=== PATIENT | male | born 1965 | race Caucasian/White ===

== ENCOUNTER 2019-01-15 14:03 | Emergency (ER) | payer OTHER ==
[~2019-01-15] VITALS: Ht 198.1 cm; Wt 99.8 kg
--- NOTE | 2019-01-15 14:15 | NUR ---
Patient arrived by EMS complaining of abdominal pain and chest pain x 2 days. No nausea, vomiting, or diarrhea. Chest pain does not radiate and he pointed to his abdomen when asked where he feels pain. Patient states he he drank alcohol 2 hours ago and drank 2 bottles of tequila last night. VSS, on ekg monitor tech, bed in lowest position.
[2019-01-15 14:40] VITALS: BP 124/75
[2019-01-15 15:02] LABS: BASOPHILS % (AUTO) 1.3 % (0.0-2.0); EOSINOPHILS % (AUTO) 1.6 % (0.0-3.0); HEMATOCRIT 44.9 % (42.0-52.0); HEMOGLOBIN 15.3 G/DL (14.2-18.0); LYMPHOCYTES % (AUTO) 38.1 % (20.0-45.0); MEAN CORPUSCULAR VOLUME 99 FL (80-99); MONOCYTES % (AUTO) 10.8 % (1.0-10.0); NEUTROPHILS % (AUTO) 48.2 % (45.0-75.0); PLATELET COUNT 162 K/UL (150-450); RED BLOOD COUNT 4.55 M/UL (4.70-6.10); RED CELL DISTRIBUTION WIDTH 12.2 % (11.6-14.8); WHITE BLOOD COUNT 4.3 K/UL (4.8-10.8)
[2019-01-15 15:13] LABS: ANION GAP 16 mmol/L (5-15); BLOOD UREA NITROGEN 22 mg/dL (7-18); CALCIUM 8.5 MG/DL (8.5-10.1); CARBON DIOXIDE 22 MMOL/L (21-32); CHLORIDE 106 MMOL/L (98-107); CREATININE 0.8 MG/DL (0.55-1.30); POTASSIUM 4.3 MMOL/L (3.5-5.1); SODIUM 144 MMOL/L (136-145)
[2019-01-15 15:20] LABS: ALANINE AMINOTRANSFERASE 59 U/L (12-78); ALBUMIN 4.3 G/DL (3.4-5.0); ALBUMIN/GLOBULIN RATIO 1.2 (1.0-2.7); ALKALINE PHOSPHATASE 69 U/L (46-116); ASPARTATE AMINO TRANSFERASE 44 U/L (15-37); BILIRUBIN,TOTAL 0.4 MG/DL (0.2-1.0)
[2019-01-15 15:40] VITALS: BP 123/78
--- NOTE | 2019-01-15 15:44 | NUR ---
ED Nurse Note: VSS, patient tolerating medications.
--- NOTE | 2019-01-15 17:51 | Emergency Room Report ---
History of Present Illness General Chief Complaint: Abdominal Pain Source: Patient Present Illness HPI 53-year-old male presents ED for evaluation. Brought in by EMS for abdominal pain and vomiting started today.. Pain is epigastric, sharp, 7 out of 10, nonradiating. Denies any diarrhea. States he has been drinking alcohol all day. Patient initially told EMS he was having some chest pain but denies chest pain to me. Denies drug use. Denies history of hypertension or other cardiac risk factors. No other aggravating relieving factors. Denies any other associated symptoms Allergies: Coded Allergies: No Known Allergies (Unverified , 01/15/19) Patient History Past Medical History: none Past Surgical History: none Pertinent Family History: none Social History: Reports: alcohol use; Denies: smoking, drug use Immunizations: UTD Reviewed Nursing Documentation: PMH: Agreed; PSxH: Agreed Nursing Documentation-PMH Past Medical History: No History, Except For Review of Systems All Other Systems: negative except mentioned in HPI Physical Exam Vital Signs Date Time Temp Pulse Resp B/P (MAP) Pulse Ox O2 Delivery O2 Flow Rate FiO2 01/15/19 14:00 98.2 111 18 124/75 (91) 98 01/15/19 14:40 Room Air Sp02 EP Interpretation: reviewed, normal General Appearance: no apparent distress, alert, GCS 15, non-toxic Head: normocephalic, atraumatic Eyes: bilateral eye normal inspection, bilateral eye PERRL ENT: hearing grossly normal, normal pharynx, no angioedema, normal voice Neck: full range of motion, supple/symm/no masses Respiratory: chest non-tender, lungs clear, normal breath sounds, speaking full sentences Cardiovascular #1: regular rate, rhythm, no edema Cardiovascular #2: 2+ carotid (R), 2+ carotid (L), 2+ radial (R), 2+ radial (L) , 2+ dorsalis pedis (R), 2+ dorsalis pedis (L) Gastrointestinal: normal bowel sounds, soft, non-distended, no guarding, no rebound, tenderness Rectal: deferred Genitourinary: normal inspection, no CVA tenderness Musculoskeletal: back normal, gait/station normal, normal range of motion, non- tender Neurologic: alert, oriented x3, responsive, motor strength/tone normal, sensory intact, speech normal Psychiatric: judgement/insight normal, memory normal, mood/affect normal, no suicidal/homicidal ideation Reflexes: 3+ bicep (R), 3+ bicep (L), 3+ tricep (R), 3+ tricep (L), 3+ knee (R) , 3+ knee (L) Lymphatic: no adenopathy Medical Decision Making Diagnostic Impression: Primary Impression: Alcohol intoxication Qualified Codes: F10.929 - Alcohol use, unspecified with intoxication, unspecified Additional Impression: Gastritis Qualified Codes: K29.20 - Alcoholic gastritis without bleeding ER Course Hospital Course 53 yo M presents c/o abd pain and vomiting. +ETOH differential diagnosis: gastritis, SBO, cholecystits Clinical course Patient placed on stretcher. On metal box maker. After initial history and physical I ordered labs, IV fluids, EKG, Zofran and pepcid Labs - no leukocytosis, no electrolyte abnormalities, LFTs normal, ETOH elevated , UDS + Bzs, trop negative EKG - NSR, no acute ischemic changes inteprreted by me patient is allowed to sleep. Given IV fluids. Stable vitals during ED course. Is not clinically sober. Discussed findings with patient. Will discharge to home. Will provide PMD referrals I feel this is a highly complex case requiring extensive working including EKG/ Rhythm strip, Xray/CT/US, Blood/urine lab work, repeat exams while in ED, and administration of strong opiates/narcotics for pain control, admission to hospital or close patient follow up. Diagnosis - gastritis , alcohol intoxication Stable and discharged to home with prescriptions for Zantac, zofran. Followup with PMD. Return to ED if symptoms recur or worsen Labs Test 01/15/19 13:40 White Blood Count 4.3 K/UL (4.8-10.8) Red Blood Count 4.55 M/UL (4.70-6.10) Hemoglobin 15.3 G/DL (14.2-18.0) Hematocrit 44.9 % (42.0-52.0) Mean Corpuscular Volume 99 FL (80-99) Mean Corpuscular Hemoglobin 33.7 PG (27.0-31.0) Mean Corpuscular Hemoglobin Concent 34.1 G/DL (32.0-36.0) Red Cell Distribution Width 12.2 % (11.6-14.8) Platelet Count 162 K/UL (150-450) Mean Platelet Volume 6.7 FL (6.5-10.1) Neutrophils (%) (Auto) 48.2 % (45.0-75.0) Lymphocytes (%) (Auto) 38.1 % (20.0-45.0) Monocytes (%) (Auto) 10.8 % (1.0-10.0) Eosinophils (%) (Auto) 1.6 % (0.0-3.0) Basophils (%) (Auto) 1.3 % (0.0-2.0) Sodium Level 144 MMOL/L (136-145) Potassium Level 4.3 MMOL/L (3.5-5.1) Chloride Level 106 MMOL/L (98-107) Carbon Dioxide Level 22 MMOL/L (21-32) Anion Gap 16 mmol/L (5-15) Blood Urea Nitrogen 22 mg/dL (7-18) Creatinine 0.8 MG/DL (0.55-1.30) Estimat Glomerular Filtration Rate > 60 mL/min (>60) Glucose Level 89 MG/DL (74-106) Calcium Level 8.5 MG/DL (8.5-10.1) Total Bilirubin 0.4 MG/DL (0.2-1.0) Aspartate Amino Transf (AST/SGOT) 44 U/L (15-37) Alanine Aminotransferase (ALT/SGPT) 59 U/L (12-78) Alkaline Phosphatase 69 U/L (46-116) Troponin I 0.000 ng/mL (0.000-0.056) Total Protein 8.0 G/DL (6.4-8.2) Albumin 4.3 G/DL (3.4-5.0) Globulin 3.7 g/dL Albumin/Globulin Ratio 1.2 (1.0-2.7) Lipase 136 U/L (73-393) Salicylates Level 2.6 ug/mL (2.8-20) Urine Opiates Screen Negative (NEGATIVE) Acetaminophen Level < 2 MCG/ML (10-30) Urine Barbiturates Screen Negative (NEGATIVE) Phencyclidine (PCP) Screen Negative (NEGATIVE) Urine Amphetamines Screen Negative (NEGATIVE) Urine Benzodiazepines Screen Positive (NEGATIVE) Urine Cocaine Screen Negative (NEGATIVE) Urine Marijuana (THC) Screen Negative (NEGATIVE) Serum Alcohol 348 mg/dL EKG Diagnostic Results Rate: normal Rhythm: NSR ST Segments: no acute changes ASA given to the pt in ED: No Rhythm Strip Diag. Results EP Interpretation: yes Rhythm: NSR, no PVC's, no ectopy Last Vital Signs Date Time Temp Pulse Resp B/P (MAP) Pulse Ox O2 Delivery O2 Flow Rate FiO2 01/15/19 15:40 98.2 94 18 123/78 99 Room Air Status: improved Disposition: HOME, SELF-CARE Condition: Stable Scripts Ranitidine Hcl* (ZANTAC*) 150 Mg Tablet 150 MG ORAL TWICE A DAY, #30 TAB Prov: Jose Barahona MD 01/15/19 Ondansetron Odt* (ZOFRAN ODT*) 4 Mg Tab.rapdis 4 MG BC EVERY 6 HOURS PRN for Nausea & Vomiting, #20 TAB 0 Refills Prov: Jose Barahona MD 01/15/19 Jose Barahona MD Jan 15, 2019 17:51
[2019-01-15] MEDS ORDERED: ONDANSETRON ODT4 MG BC (19:18)
[2019-01-15] MEDS ORDERED: RANITIDINE HCL150 MG ORAL (19:18)
[2019-01-15 19:30] VITALS: BP 123/78
--- NOTE | 2019-01-15 19:30 | NUR ---
ER DISCHARGE NOTE: Patient is cleared to be discharged per ERMD, pt is aox4, on room air, with stable vital signs. pt was given dc and prescription instructions, pt was able to verbalize understanding, pt id band and iv site removed without complications. pt is able to ambulate with steady gait. pt took all belongings.
== END 2019-01-15 19:30 | disposition home or self-care (01) ==
LOC: EDBD 14:03 → EMR 19:14
DX: K29.20 Alcoholic gastritis without bleeding (principal); F10.929 Alcohol use, unspecified with intoxication, unspecified
CPT/HCPCS: 36415; 80053; 80307; 83690; 84484; 85025; 93005; 96361; 96374; 96375; G0480; G0481; J2405; S0028; Z7502; 99284; J7030

== ENCOUNTER 2019-01-16 17:06 | Emergency (ER) | payer OTHER ==
[~2019-01-16] VITALS: Ht 188 cm; Wt 90.7 kg
[~2019-01-16 17:06] MED LIST: ONDANSETRON ODT4 MG BC; RANITIDINE HCL150 MG ORAL
[2019-01-16 17:26] VITALS: BP 151/70
--- NOTE | 2019-01-16 17:26 | NUR ---
ED Nurse Note: Pt was brought by [address] due to ETOH. per pt, "I am fine. I want to go." Pt was seen due here at [facility] yesterday for the same symptom. Noted restlessness and pt keeps standing from his bed. no respiratory distress. AAO x4
[2019-01-16] MEDS ORDERED: Ketorolac 30mg Inj IV ONE (18:00)
--- NOTE | 2019-01-16 19:08 | NUR ---
HAND-OFF: Report given to STACY ANDUJAR.
--- NOTE | 2019-01-16 19:09 | NUR ---
ED Nurse Note: Report received from CON good. pt is resting in bed. no acute distress is noted.
[2019-01-16 19:10] VITALS: BP 135/84
--- NOTE | 2019-01-16 19:53 | Emergency Room Report ---
History of Present Illness General Chief Complaint: Alcohol Intoxication Source: EMS Present Illness HPI 53-year-old male with history of alcohol abuse who was here earlier today at [facility] brought in by paramedics due to alcohol intoxication. Patient denies any headache and dizziness however complains of palpitation. Denies chest pain or shortness of breath. Keeps asking to leave and saying that he is a tough uriel. Patient appears intoxicated however speaks in full sentences. Patient is not a good historian however denies any abdominal pain nausea vomiting. Denies all other drug use Allergies: Coded Allergies: No Known Allergies (Unverified , 01/16/19) Patient History Past Medical History: see triage record Past Surgical History: unable to obtain Pertinent Family History: unable to obtain Social History: Reports: alcohol use Immunizations: UTD Reviewed Nursing Documentation: PMH: Agreed; PSxH: Agreed Nursing Documentation-PMH Past Medical History: No History, Except For Hx Hypertension: Yes Review of Systems All Other Systems: negative except mentioned in HPI Physical Exam Vital Signs Date Time Temp Pulse Resp B/P (MAP) Pulse Ox O2 Delivery O2 Flow Rate FiO2 01/16/19 17:16 98.1 97 18 143/73 (96) 99 Room Air Sp02 EP Interpretation: reviewed, normal General Appearance: other - intoxicated Head: normocephalic, atraumatic Eyes: bilateral eye normal inspection, bilateral eye PERRL ENT: hearing grossly normal, normal pharynx, no angioedema, normal voice Neck: full range of motion, supple/symm/no masses Respiratory: chest non-tender, lungs clear, normal breath sounds, no wheezing, speaking full sentences Cardiovascular #1: regular rate, rhythm, no edema, no murmur Cardiovascular #2: 2+ radial (R), 2+ radial (L) Gastrointestinal: normal bowel sounds, non tender, soft, non-distended, no guarding, no rebound Rectal: deferred Genitourinary: normal inspection, no CVA tenderness Musculoskeletal: back normal, gait/station normal, normal range of motion, non- tender, no calf tenderness Neurologic: alert, oriented x3, responsive, motor strength/tone normal, sensory intact, speech normal Psychiatric: anxious Skin: no rash Lymphatic: no adenopathy Medical Decision Making PA Attestation All diagnoses and treatment plans were reviewed and discussed with my supervising physician Dr. Guzman Diagnostic Impression: Primary Impression: Acute alcoholic intoxication ER Course 53-year-old male with history of alcohol abuse who was here earlier today at [facility] brought in by paramedics due to alcohol intoxication. Patient denies any headache and dizziness however complains of palpitation. Denies chest pain or shortness of breath. Keeps asking to leave and saying that he is a tough uriel. Patient appears intoxicated however speaks in full sentences. Patient is not a good historian however denies any abdominal pain nausea vomiting. Denies all other drug use Ddx considered but are not limited to: Alcohol intoxication, alcohol withdrawal ,generalized anxiety disorder, panic attack, depression with psychotic feature, bipolar disorder, drug overdose Vital signs: are WNL, pt. is afebrile H&PE are most consistent with: Acute alcoholic intoxication ORDERS: EKG ED INTERVENTIONS: NS bolus, Zofran, Pepcid DISCHARGE: At this time pt. is stable for d/c to home. Will provide printed patient care instructions, and any necessary prescriptions. Care plan and follow up instructions have been discussed with the patient prior to discharge. I sent the patient to Dr. Mueller EKG Diagnostic Results Rate: normal Rhythm: NSR ST Segments: no acute changes Other Impression no acute st changes Last Vital Signs Date Time Temp Pulse Resp B/P (MAP) Pulse Ox O2 Delivery O2 Flow Rate FiO2 01/16/19 18:37 98.1 01/16/19 17:26 89 16 Room Air 01/16/19 17:26 151/70 97 Disposition: HOME, SELF-CARE Condition: Stable Scripts No Active Prescriptions or Reported Meds Referrals: KATI LAN,REFERRING (PCP) Patient Instructions: Alcohol Abuse and Nutrition, Alcohol Intoxication, Easy- to-Read Juice Mendez Jan 16, 2019 19:53
--- NOTE | 2019-01-16 22:15 | NUR ---
ED Nurse Note: food and beverages provided.
[2019-01-16 22:40] VITALS: BP 129/85
--- NOTE | 2019-01-16 22:40 | NUR ---
ER DISCHARGE NOTE: Patient is cleared to be discharged per ERMD, pt is aox4, on room air, with stable vital signs. pt was given dc instructions, pt was able to verbalize understanding, pt id band and iv site removed without complications. pt is able to ambulate with steady gait. pt took all belongings.
== END 2019-01-16 22:40 | disposition home or self-care (01) ==
LOC: EDBD 17:06 → EDUNIT# 17:06 → EMR 17:19 → EDUNIT# 17:19 → EMR 22:40
DX: F10.129 Alcohol abuse with intoxication, unspecified (principal); I10 Essential (primary) hypertension
CPT/HCPCS: 93005; 96361; 96374; 96375; J1885; J2405; S0028; Z7502; 99284; J7030

== ENCOUNTER 2019-01-18 22:26 | Emergency (ER) | payer OTHER ==
[~2019-01-18] VITALS: Ht 198.1 cm; Wt 104.3 kg
[2019-01-18 22:30] VITALS: BP 140/85
--- NOTE | 2019-01-18 22:30 | NUR ---
ED Nurse Note: PT IS AAOX2, VSS, NO ACUTE DISTRESS. PT SEEMS CONFUSE. Patient was BIBA [address] due to ETOH.
--- NOTE | 2019-01-18 22:35 | Emergency Room Report ---
History of Present Illness General Chief Complaint: Alcohol Intoxication Source: Patient, EMS Present Illness HPI Disclaimer: Please note that this report is being documented using DRAGON technology. This can lead to erroneous entry secondary to incorrect interpretation by the dictating instrument. HPI: 53-year-old male with history of alcohol abuse and gastritis brought in by EMS today for evaluation of alcohol intoxication and shortness of breath. Patient has been seen in the emergency department several times over the past few days for alcohol intoxication and epigastric pain. He states he was drinking alcohol tonight and had a fall from standing striking his head but denies loss of consciousness. He was found on the ground by EMS who also stated he was complaining of chest pain at that time. He is not complaining of chest pain now but is complaining of difficulty breathing. He denies cough recently but states he was diagnosed with a pulmonary embolism earlier this year at [facility] and while he was prescribed blood thinners he is no longer taking them. Denies any pain or swelling in the lower extremities. He does not use inhalers. Denies any vomiting or abdominal pain at this time. PMH: Alcohol abuse, gastritis, reported pulmonary embolism PSH: None Allergies: None Social Hx: Alcohol abuse Allergies: Coded Allergies: No Known Allergies (Unverified , 01/15/19) Nursing Documentation-PMH Hx Hypertension: Yes Review of Systems All Other Systems: negative except mentioned in HPI Physical Exam Vital Signs Date Time Temp Pulse Resp B/P (MAP) Pulse Ox O2 Delivery O2 Flow Rate FiO2 01/18/19 22:24 98.2 95 22 143/88 (106) 97 Room Air General: Awake and alert, no acute distress HEENT: Normocephalic, atraumatic. There are no scalp or face hematomas, lacerations or abrasions. No tenderness or soft tissue swelling over the facial bones. EOMI. PERRLA. No septal hematoma. No oral lacerations. Dentition is intact. No malocclusion Neck: Supple, trachea midline. Arrives without cervical collar Chest Wall: No tenderness, no deformity, no crepitus CV: RRR. S1 and S2 normal. No murmur appreciated Resp: Mild tachypnea. Normal work of breathing. No cough, wheezing or crackles appreciated Abd: Soft, nontender, nondistended Skin: Intact. No abrasions, laceration or rash over the exposed skin MSK: Normal tone and bulk. No obvious deformity. Moving all extremities. Ambulating without difficulty. Neuro: Awake and alert though slightly slurred speech and appears intoxicated. Mentating appropriately and answering questions appropriately. Sensation is intact to light touch over the dermatomes of the upper and lower extremities Spine: There is no tenderness, step-off or deformity in the cervical, thoracic or lumbosacral spine. Medical Decision Making Diagnostic Impression: Primary Impression: Acute alcoholic intoxication ER Course This is a 53-year-old male presenting for evaluation after being found down by EMS. Will obtain a CT scan of the head for reported fall and head injury as well as cardiac work-up for reported chest pain and shortness of breath along with a d-dimer as he states he has had previous PE. He is not hypoxic and is stable vital signs otherwise but is difficult to assess and given his alcohol intoxication. He is adamant that he has had PE in the past but states he is no longer anticoagulated. Laboratory Tests Test 01/18/19 23:08 White Blood Count 4.8 K/UL (4.8-10.8) Red Blood Count 4.48 M/UL (4.70-6.10) L Hemoglobin 15.4 G/DL (14.2-18.0) Hematocrit 43.3 % (42.0-52.0) Mean Corpuscular Volume 96 FL (80-99) Mean Corpuscular Hemoglobin 34.4 PG (27.0-31.0) H Mean Corpuscular Hemoglobin Concent 35.6 G/DL (32.0-36.0) Red Cell Distribution Width 11.9 % (11.6-14.8) Platelet Count 168 K/UL (150-450) Mean Platelet Volume 6.3 FL (6.5-10.1) L Neutrophils (%) (Auto) 58.4 % (45.0-75.0) Lymphocytes (%) (Auto) 34.0 % (20.0-45.0) Monocytes (%) (Auto) 5.9 % (1.0-10.0) Eosinophils (%) (Auto) 0.6 % (0.0-3.0) Basophils (%) (Auto) 1.1 % (0.0-2.0) Prothrombin Time 10.0 SEC (9.30-11.50) Prothrombin Time INR 0.9 (0.9-1.1) PTT 29 SEC (23-33) D-Dimer Pending Sodium Level 147 MMOL/L (136-145) H Potassium Level 3.7 MMOL/L (3.5-5.1) Chloride Level 104 MMOL/L (98-107) Carbon Dioxide Level 25 MMOL/L (21-32) Anion Gap 18 mmol/L (5-15) H Blood Urea Nitrogen 9 mg/dL (7-18) Creatinine 0.8 MG/DL (0.55-1.30) Estimate Glomerular Filtration Rate > 60 mL/min (>60) Glucose Level 115 MG/DL (74-106) H Calcium Level 8.7 MG/DL (8.5-10.1) Total Bilirubin 0.8 MG/DL (0.2-1.0) Aspartate Amino Transferase (AST) 44 U/L (15-37) H Alanine Aminotransferase (ALT) 63 U/L (12-78) Alkaline Phosphatase 55 U/L (46-116) Total Creatine Kinase 444 U/L (26-308) H Creatine Kinase MB 2.9 NG/ML (0.0-3.6) Creatine Kinase MB Relative Index 0.6 Troponin I 0.000 ng/mL (0.000-0.056) Pro-B-Type Natriuretic Peptide 13 pg/mL (0-125) Total Protein 7.8 G/DL (6.4-8.2) Albumin 4.4 G/DL (3.4-5.0) Globulin 3.4 g/dL Albumin/Globulin Ratio 1.3 (1.0-2.7) Serum Alcohol 409 mg/dL EKG Diagnostic Results EKG Time: 23:02 Rate: normal Rhythm: NSR ST Segments: no acute changes Other Impression Sinus rhythm, normal axis, normal intervals, no ST segment changes. Rhythm Strip Diag. Results Rhythm Strip Time: 23:02 EP Interpretation: yes Rate: 90s Rhythm: NSR, no PVC's, no ectopy Chest X-Ray Diagnostic Results Chest X-Ray Diagnostic Results : Chest X-Ray Ordered: Yes # of Views/Limited/Complete: 1 View Indication: Shortness of Breath Interpretation: no consolidation, no effusion, no pneumothorax, no acute cardiopulmonary disease Impression: No acute disease Electronically Signed by: Electronically signed by Dr. Feroz Guzman CT/MRI/US Diagnostic Results CT/MRI/US Diagnostic Results : Impression Final Report EXAM: CT Head Without Intravenous Contrast CLINICAL HISTORY: Injury TECHNIQUE: Axial computed tomography images of the head/brain without intravenous contrast. CTDI is 62.7 mGy and DLP is 1363.6 mGy-cm. One or more of the following dose reduction techniques were used: automated exposure control, adjustment of the mA and/or kV according to patient size, use of iterative reconstruction technique. COMPARISON: No relevant prior studies available. FINDINGS: Brain: No acute intracranial hemorrhage, large hypodensity, or significant mass effect. Nonspecific areas of hypoattenuation in the periventricular white matter likely represent the sequela of chronic small vessel ischemic disease. Ventricles: Ventricular and sulcal prominence commensurate with the patient's age. Bones/joints: Unremarkable. No acute fracture. Soft tissues: Unremarkable. Sinuses: Unremarkable. Mastoid air cells: Unremarkable. IMPRESSION: No acute intracranial hemorrhage or calvarial fracture. Radiologist: Gala Syed MD Electronically Signed: 01/18/19 23:44 Study ready at 23:27 and initial results transmitted at 23:44 Final Report EXAM: CT Angiography Chest With Intravenous Contrast CLINICAL HISTORY: PE TECHNIQUE: Axial computed tomographic angiography images of the chest with intravenous contrast. CTDI is 16 mGy and DLP is 678 mGy-cm. One or more of the following dose reduction techniques were used: automated exposure control, adjustment of the mA and/or kV according to patient size, use of iterative reconstruction technique. MIP reconstructed images were created and reviewed. COMPARISON: No relevant prior studies available. FINDINGS: Pulmonary arteries: Assessment for pulmonary artery emboli is slightly limited due to suboptimal timing of the contrast bolus. There is no obvious central pulmonary artery embolus. Aorta: No acute findings. No thoracic aortic aneurysm. Other veins: There are extensive venous collaterals in the left upper extremity. Although the contrast injection was into the left upper extremity, a segment of the left subclavian vein is not opacified-worrisome for venous thrombus. Lungs: Unremarkable. Pleural space: Unremarkable. No significant effusion. No pneumothorax. Heart: Unremarkable. No cardiomegaly. No significant pericardial effusion. No evidence of RV dysfunction. Bones/joints: No acute fracture. No dislocation. Soft tissues: Unremarkable. Lymph nodes: Unremarkable. No enlarged lymph nodes. Liver: Diffuse fatty infiltration of the liver. IMPRESSION: 1. No evidence of pulmonary artery embolus. 2. Question left subclavian vein thrombus as described above. Radiologist: Isabella Rosario MD Electronically Signed: 01/19/19 04:23 Study ready at 03:53 and initial results transmitted at 04:23 Critical Value Communications Clear Time Type Notes 01/19/19 04:28 Call Doctor Regarding Other, called Dr. Guzman on 01/19 04: 27 (-07:00) Reevaluation Time: 05:03 Last Vital Signs Date Time Temp Pulse Resp B/P (MAP) Pulse Ox O2 Delivery O2 Flow Rate FiO2 01/18/19 22:24 98.2 95 22 143/88 (106) 97 Room Air Reevaluation Impression D-dimer returned positive and a CTA of the chest was obtained. There is no evidence of PE however there was questionable occlusion of the left subclavian vein. Will obtain an ultrasound. Remainder of labs were within normal limits aside from elevated serum alcohol level at 409. He is metabolizing in the emergency department. 0630: Preliminary report of the ultrasound shows a patent subclavian artery though this is only taken in one view. Will await official radiology interpretation. Vital signs remained stable. The patient will be signed out to Dr. Camacho pending official radiology interpretations, reevaluation and final disposition. Scripts Lorazepam* (ATIVAN*) 1 Mg Tablet 1 MG ORAL THREE TIMES A DAY, #12 TAB Prov: Thomas Camacho MD 01/19/19 Feroz Guzman MD Jan 18, 2019 22:35
--- NOTE | 2019-01-18 22:56 | NUR ---
ED Nurse Note: pt with ct
[2019-01-18 23:21] LABS: BASOPHILS % (AUTO) 1.1 % (0.0-2.0); EOSINOPHILS % (AUTO) 0.6 % (0.0-3.0); HEMATOCRIT 43.3 % (42.0-52.0); HEMOGLOBIN 15.4 G/DL (14.2-18.0); MEAN CORPUSCULAR VOLUME 96 FL (80-99); MONOCYTES % (AUTO) 5.9 % (1.0-10.0); NEUTROPHILS % (AUTO) 58.4 % (45.0-75.0); PLATELET COUNT 168 K/UL (150-450); RED BLOOD COUNT 4.48 M/UL (4.70-6.10); RED CELL DISTRIBUTION WIDTH 11.9 % (11.6-14.8); WHITE BLOOD COUNT 4.8 K/UL (4.8-10.8)
[2019-01-18 23:32] LABS: ANION GAP 18 mmol/L (5-15); BLOOD UREA NITROGEN 9 mg/dL (7-18); CALCIUM 8.7 MG/DL (8.5-10.1); CARBON DIOXIDE 25 MMOL/L (21-32); CHLORIDE 104 MMOL/L (98-107); CREATININE 0.8 MG/DL (0.55-1.30); POTASSIUM 3.7 MMOL/L (3.5-5.1); SODIUM 147 MMOL/L (136-145)
[2019-01-18 23:39] LABS: INR 0.9 (0.9-1.1)
[2019-01-18 23:40] VITALS: BP 137/82
--- NOTE | 2019-01-18 23:45 | Diagnostic Imaging Report ---
EXAM: CT Head Without Intravenous Contrast CLINICAL HISTORY: Injury TECHNIQUE: Axial computed tomography images of the head brain without intravenous contrast. CTDI is 62.7 mGy and DLP is 1363.6 mGy-cm. One or more of the following dose reduction techniques were used: automated exposure control, adjustment of the mA and or kV according to patient size, use of iterative reconstruction technique. COMPARISON: No relevant prior studies available. FINDINGS: Brain: No acute intracranial hemorrhage, large hypodensity, or significant mass effect. Nonspecific areas of hypoattenuation in the periventricular white matter likely represent the sequela of chronic small vessel ischemic disease. Ventricles: Ventricular and sulcal prominence commensurate with the patient's age. Bones joints: Unremarkable. No acute fracture. Soft tissues: Unremarkable. Sinuses: Unremarkable. Mastoid air cells: Unremarkable. IMPRESSION: No acute intracranial hemorrhage or calvarial fracture.
[2019-01-19] VITALS (8 sets, daily range): BP systolic 114–156; BP diastolic 68–89
[2019-01-19 00:02] LABS: ALANINE AMINOTRANSFERASE 63 U/L (12-78); ALBUMIN 4.4 G/DL (3.4-5.0); ALBUMIN/GLOBULIN RATIO 1.3 (1.0-2.7); ALKALINE PHOSPHATASE 55 U/L (46-116); ASPARTATE AMINO TRANSFERASE 44 U/L (15-37); BILIRUBIN,TOTAL 0.8 MG/DL (0.2-1.0); CKMB 2.9 NG/ML (0.0-3.6); CREATINE KINASE 444 U/L (26-308)
--- NOTE | 2019-01-19 00:50 | NUR ---
ED Nurse Note: PT WITH X-RAY
--- NOTE | 2019-01-19 00:50 | Diagnostic Imaging Report ---
EXAM: XR Chest, 1 View CLINICAL HISTORY: Chest pain TECHNIQUE: Frontal view of the chest. COMPARISON: No relevant prior studies available. FINDINGS: Lungs: Hypoventilatory lungs. No consolidation. Pleural space: Unremarkable. No pneumothorax. Heart: Prominence of the cardiomediastinal silhouette is likely in part due to low lung volumes. Mediastinum: See above. Bones joints: No acute osseous abnormality. IMPRESSION: No acute cardiopulmonary process.
--- NOTE | 2019-01-19 01:24 | NUR ---
ED Nurse Note: PT RESTING IN BED.
[2019-01-19] MEDS ORDERED: Omnipaue 350mg/ml 100ml vial INJ PRN (02:15)
--- NOTE | 2019-01-19 02:15 | NUR ---
ED Nurse Note: pt awake with no distress.
--- NOTE | 2019-01-19 03:25 | NUR ---
ED Nurse Note: PT OUT FOR CT W/ CONTRAST.
--- NOTE | 2019-01-19 04:24 | Diagnostic Imaging Report ---
EXAM: CT Angiography Chest With Intravenous Contrast CLINICAL HISTORY: PE TECHNIQUE: Axial computed tomographic angiography images of the chest with intravenous contrast. CTDI is 16 mGy and DLP is 678 mGy-cm. One or more of the following dose reduction techniques were used: automated exposure control, adjustment of the mA and or kV according to patient size, use of iterative reconstruction technique. MIP reconstructed images were created and reviewed. COMPARISON: No relevant prior studies available. FINDINGS: Pulmonary arteries: Assessment for pulmonary artery emboli is slightly limited due to suboptimal timing of the contrast bolus. There is no obvious central pulmonary artery embolus. Aorta: No acute findings. No thoracic aortic aneurysm. Other veins: There are extensive venous collaterals in the left upper extremity. Although the contrast injection was into the left upper extremity, a segment of the left subclavian vein is not opacified- worrisome for venous thrombus. Lungs: Unremarkable. Pleural space: Unremarkable. No significant effusion. No pneumothorax. Heart: Unremarkable. No cardiomegaly. No significant pericardial effusion. No evidence of RV dysfunction. Bones joints: No acute fracture. No dislocation. Soft tissues: Unremarkable. Lymph nodes: Unremarkable. No enlarged lymph nodes. Liver: Diffuse fatty infiltration of the liver. IMPRESSION: 1. No evidence of pulmonary artery embolus. 2. Question left subclavian vein thrombus as described above. <MYCVCSECTION> Critical Value Communications 01 19 19 04:28 Call Doctor Regarding Other, called Dr. Guzman on 01 19 04:27 (-07:00)
[2019-01-19] MEDS ORDERED: Ketorolac 30mg Inj IV ONE (05:30)
--- NOTE | 2019-01-19 05:45 | NUR ---
HAND-OFF: Report given to CON VILLANUEVA.
--- NOTE | 2019-01-19 05:46 | NUR ---
ER Nurse Note: Pt placed on screening tech; stable. Pt a&ox2 to name, date; VSS. Complains of pain on LT subclavian area, aware. SLIV to LT hand and LT AC; patent. All belongings accounted for. Mini Cog started by CON Fuchs. All safety measures met; will continue to [facility].
--- NOTE | 2019-01-19 07:06 | NUR ---
ER Nurse Note: Report given to CON Chahal. Pt stable, resting in bed.
[2019-01-19] MEDS ORDERED: ATIVAN1 MG ORAL (10:29)
[2019-01-19] MEDS ORDERED: LORazepam 1mg tab ORAL ONE (10:30)
--- NOTE | 2019-01-20 13:42 | Diagnostic Imaging Report ---
Indication: Left upper extremity pain and swelling. Technique: Duplex Doppler imaging of the veins in the left upper extremity performed. FINDINGS: The jugular and subclavian veins demonstrate normal color flow and waveform signal. No evidence of thrombosis. Continuation to the axillary vein, brachial, cephalic and basilic veins show no evidence of thrombosis with good compressibility, normal color flow and waveform analysis. CTA performed 01/19/2019 was reviewed. Venous collaterals in the left arm, left arm injection are noted with nonvisualization of a part of the lateral part of the left subclavian vein. The findings were felt to be suspicious for vein thrombosis. No thrombus is identified on the current study which is limited. Presence of collaterals could represent extrinsic compression of the subclavian vein such as from a thoracic outlet syndrome or intrinsic narrowing of the vein (multiple previous PICCs or venous access). Please correlate clinically. IMPRESSION: No evidence of thrombosis involving the left upper extremity in question.
--- NOTE | 2019-01-21 16:52 | Cardiology Report ---
APPROVED REPORT EKG Measurement Heart [id number] Normal sinus rhythm Incomplete right bundle branch block Borderline ECG
== END 2019-01-19 10:50 | disposition home or self-care (01) ==
LOC: EDBD 22:26 → EMR 22:45
DX: F10.129 Alcohol abuse with intoxication, unspecified (principal); R07.9 Chest pain, unspecified; Z86.711 Personal history of pulmonary embolism
CPT/HCPCS: 36415; 70450; 71045; 71275; 80053; 82550; 82553; 83880; 84484; 85025; 85379; 85610; 85730; 93005; 93971; 96361; 96374; G0480; J1885; Q9967; Z7502; 99284; J7030